=== PATIENT | female | born 2000 | race African-American/Black ===

== ENCOUNTER 2023-07-19 17:04 | Emergency (ER) | payer MEDICAID ==
[~2023-07-19] VITALS: Ht 170.2 cm; Wt 68.0 kg
[2023-07-19] MEDS ORDERED: HYDROCODONE/APAP 5-325MG TABLET PO ONE (17:30)
[2023-07-19] MEDS ORDERED: HYDROCODONE/APAP 5-325MG TABLET ONE (18:22)
[2023-07-19] MEDS ORDERED: IBUP-1955 PO (19:14)
[2023-07-19] MEDS ORDERED: LIDO30AD10 TP (19:14)
[2023-07-19] MEDS ORDERED: CYCL5TAB PO (19:14)
[2023-07-19 19:56] VITALS: BP 120/66; TEMP 97.5; O2SAT 100
== END 2023-07-19 19:57 | disposition home or self-care (01) ==
LOC: ER 17:06
DX: S70.01XA Contusion of right hip, initial encounter (principal); S30.0XXA Contusion of lower back and pelvis, initial encounter; Z88.0 Allergy status to penicillin; W05.2XXA Fall from non-moving motorized mobility scooter, initial encounter; Y93.89 Activity, other specified; Y92.89 Other specified places as the place of occurrence of the external cause; Y99.8 Other external cause status
CPT/HCPCS: 73502; 73551; A4663

== ENCOUNTER 2023-08-04 19:00 | Emergency (ER) | payer OTHER, MEDICAID ==
[~2023-08-04] VITALS: Ht 170.2 cm; Wt 68.0 kg
[~2023-08-04 19:00] MED LIST: CYCL5TAB PO; IBUP-1955 PO; LIDO30AD10 TP
[2023-08-04] MEDS ORDERED: HYDROCODONE/APAP 10-325 MG TABLET ONE (19:26)
[2023-08-04] MEDS ORDERED: HYDROCODONE/APAP 10-325 MG TABLET PO ONE (19:30)
[2023-08-04] MEDS ORDERED: HYDR-3980 PO (19:30)
[2023-08-04 20:28] VITALS: BP 143/71; O2SAT 99
== END 2023-08-04 19:40 | disposition home or self-care (01) ==
LOC: ER 19:07
DX: R51.9 Headache, unspecified (principal); R10.9 Unspecified abdominal pain; H00.014 Hordeolum externum left upper eyelid; Z88.0 Allergy status to penicillin; Z79.1 Long term (current) use of non-steroidal anti-inflammatories (NSAID); Z79.899 Other long term (current) drug therapy
CPT/HCPCS: A4663